=== PATIENT | female | born 1990 | race Caucasian/White ===

== ENCOUNTER 2017-02-21 22:33 | Emergency (ER) | payer OTHER ==
[~2017-02-21] VITALS: Ht 162.6 cm; Wt 63.3 kg
[2017-02-21] MEDS ORDERED: MOTRIN800 MG PO (23:45)
[2017-02-22 01:26] VITALS: BP 135/85
== END 2017-02-22 01:27 | disposition home or self-care (01) ==
LOC: EME 22:33
DX: S00.451A Superficial foreign body of right ear, initial encounter (principal)
CPT/HCPCS: 99281; 99283